=== PATIENT | female | born 1965 | race Native Hawaiian/Other Pacific Islander ===

== ENCOUNTER 2017-04-20 08:37 | Outpatient (CLI) | payer OTHER ==
[~2017-04-20 08:37] MED LIST: AMOX500C85 PO; BENZONATATE200 MG PO; NYST100048 BUC; SERT100T PO; Z-PAK PO
== END 2017-04-20 09:45 | disposition home or self-care (01) ==
LOC: MAMMO 08:37
DX: Z12.31 Encounter for screening mammogram for malignant neoplasm of breast (principal)
CPT/HCPCS: G0202-TC

== ENCOUNTER 2018-07-07 11:17 | Outpatient (CLI) | payer BC | END 2018-07-07 19:18 | disposition home or self-care (01) | LOC: MAMMO 11:17 | DX: Z12.31 Encounter for screening mammogram for malignant neoplasm of breast (principal) ==

== ENCOUNTER 2019-09-14 13:04 | Outpatient (CLI) | payer OTHER | END 2019-09-14 20:45 | disposition home or self-care (01) | LOC: MAMMO 13:04 | DX: Z12.31 Encounter for screening mammogram for malignant neoplasm of breast (principal) ==

== ENCOUNTER 2021-01-16 08:43 | Outpatient (CLI) | payer OTHER | END 2021-01-16 21:43 | disposition home or self-care (01) | LOC: MAMMO 08:43 | PROVIDERS: ATTEND Internal Medicine | DX: Z12.31 Encounter for screening mammogram for malignant neoplasm of breast (principal) ==

== ENCOUNTER 2023-02-10 08:22 | Outpatient (CLI) | payer OTHER | END 2023-02-10 17:00 | disposition home or self-care (01) | LOC: MAMMO 08:22 | PROVIDERS: ATTEND Physician Assistant | DX: N95.1 Menopausal and female climacteric states (principal); Z12.31 Encounter for screening mammogram for malignant neoplasm of breast ==